=== PATIENT | female | born 1970 | race Caucasian/White ===

== ENCOUNTER 2023-12-02 08:00 | Outpatient (CLI) | payer BC ==
--- NOTE | 2023-12-02 15:36 | XRAY Report ---
PROCEDURE: Shoulder 3 View RT INDICATIONS: RIGHT SHOULDER PAIN TECHNIQUE: 4 views of the shoulder were acquired. COMPARISON: None. FINDINGS: Bones: No fractures or dislocations. Mild degenerative changes of the acromioclavicular joint. No aggarwal spicious bony lesions. Visualized ribs appear intact. Soft tissues: No suspicious soft tissue calcifications. The visualized lungs are within normal limi ts. IMPRESSION: No acute bony abnormality. Mild degenerative changes of the acromioclavicular joint. Reviewed by: Chucky Freeman MD on 12/02/2023 3:34 PM PST Approved by: Chucky Freeman MD on 12/02/2023 3:34 PM PST Station ID: [id number]
== END 2023-12-02 23:59 | disposition home or self-care (01) ==
LOC: DI.WOS 08:00
PROVIDERS: ATTEND Physician Assistant Surgical
DX: M75.00 Adhesive capsulitis of unspecified shoulder (principal); M19.011 Primary osteoarthritis, right shoulder